=== PATIENT | male | born 1970 | race Caucasian/White ===

== ENCOUNTER 2016-08-25 09:09 | Emergency (ER) | payer OTHER ==
[~2016-08-25] VITALS: Ht 185.4 cm; Wt 98.9 kg
--- NOTE | ~2016-08-25 | EKG ---
[address] [address] ELECTROCARDIOGRAM REPORT Name: KATHY SALDAÑA Room #: [id number] Admission: 08/25/16 Attend Phys: Discharge: 08/25/16 Date of : 68 Report #: [id number] THIS REPORT FOR: //name// [facility] ED Test Date: 2016-08-25 Test Time: 09:13:27 Pat Name: KATHY SALDAÑA Department: Room: Gender: Telegraph Dispatcher: Catherine SIDDIQI : 1970 Requested By: Gianluca Rico Order Number: [id number] MD: Td Cervantes Measurements Intervals [place] Rate: 81 P: 47 DC: 142 QRS: 41 QRSD: 92 T: 11 QT: 378 QTc: 439 Interpretive Statements Sinus rhythm No previous ECG available for comparison Electronically Signed On 08-25-2016 12:43:53 CDT by Td Cervantse [email or web address] <ELECTRONICALLY SIGNED> By: Td Cervantes MD 08/25/16 1243 0913 0913 Td Cervantes MD /EPI
[~2016-08-25 09:09] MED LIST: LORTAB 5 MG/5001 TA1 PO
[2016-08-25] MEDS ORDERED: HYDROCHLOROTHIA25 M1 PO (09:12)
[2016-08-25 09:44] LABS: ABSOLUTE NEUTROPHILS 8.2 thou/uL (1.4-8.2); BASOPHILS 0.7 % (0.0-2.0); EOSINOPHILS 2.2 % (0.0-3.0); HEMATOCRIT 45.8 % (42.0-52.0); HEMOGLOBIN 15.9 gm/dL (14.0-18.0); LYMPHOCYTES 10.6 % (24.0-44.0); MCH 30.8 pg (26.0-34.0); MCHC 34.8 g/dL (28.0-37.0); MCV 88.4 fL (80.0-100.0); MONOCYTES 5.8 % (1.0-8.0); PLATELET COUNT 262 thou/uL (150-400); POLYS 80.7 % (36.0-66.0); RBC 5.18 mil/uL (4.50-6.00); RDW 13.3 % (10.5-14.5); WBC 10.1 thou/uL (4.0-11.0)
[2016-08-25 09:47] LABS: MANUAL DIFF NO
[2016-08-25 09:53] LABS: ANION GAP 9 mmol/L (7-16); BUN 13 mg/dL (7-18); CALCIUM 8.8 mg/dL (8.5-10.1); CHLORIDE 104 mmol/L (98-107); CO2 27 mmol/L (21-32); GLUCOSE 124 mg/dL (70-99); POTASSIUM 3.9 mmol/L (3.5-5.1); SODIUM 140 mmol/L (136-145)
[2016-08-25 10:04] LABS: ALBUMIN 3.8 g/dL (3.4-5.0); ALKALINE PHOSPHATASE 66 U/L (46-116); DIRECT BILIRUBIN < 0.1 mg/dL (<0.1-0.3); NT-PRO BRAIN NAT PEPTIDE 13 pg/mL (<300); SGOT 28 U/L (15-37); SGPT 57 U/L (30-65); TOTAL BILIRUBIN 0.6 mg/dL (<0.1-1.0); TOTAL PROTEIN 7.1 g/dL (6.4-8.2); TROPONIN-I < 0.04 ng/mL (<0.04-0.07)
[2016-08-25 12:17] VITALS: BP 126/80
== END 2016-08-25 12:17 | disposition home or self-care (01) ==
LOC: ER 09:09
PROVIDERS: Physician Assistant
DX: R07.9 Chest pain, unspecified (principal); R06.02 Shortness of breath; I10 Essential (primary) hypertension